=== PATIENT | female | born 1935 | race Caucasian/White ===

== ENCOUNTER 2020-04-23 15:12 | Outpatient (RCR) | payer MEDICAID ==
[~2020-04-23 15:12] MED LIST: ASPI-1238 PO; ASPI-999 PO; DILT-27 PO
== END 2020-07-22 ==
LOC: CARD 15:12
PROVIDERS: ATTEND Internal Medicine Interventional Cardiology
DX: I48.91 Unspecified atrial fibrillation (principal)

== ENCOUNTER → 2021-03-05 | Outpatient (CLI) | payer MEDICAID ==
--- NOTE | 2021-03-05 11:27 | Diagnostic Imaging Report ---
US ABDOMEN COMPLETE 19804 PROCEDURE: Ultrasound abdomen complete. TECHNIQUE: Multiple real-time grayscale images were obtained of the abdomen in various projections. INDICATION: Right upper quadrant pain. COMPARISON: None available. FINDINGS: The liver measures 14 cm. It has normal echogenicity and is without focal mass. The portal vein is patent with normal direction of flow. The gallbladder is distended without gallstones, wall thickening, or pericholecystic fluid. The common bile duct measures up to 0.4 cm in diameter. No intrahepatic biliary dilation. The visualized portions of the pancreas are normal. Portions of the head and tail are obscured by overlying bowel gas. The kidneys are normal in size. No hydronephrosis, shadowing calculi, or suspicious mass lesion. The spleen is normal in size measuring 7 cm. There is no focal splenic mass. Aorta is normal in caliber with distal tapering. This measures up to 2.2 cm proximally and has a moderate amount of atherosclerotic plaque present. IVC is patent. Small bilateral pleural effusions are present. IMPRESSION: 1. Normal gallbladder and bile ducts. 2. Atherosclerotic aorta. 3. Small bilateral pleural effusions. Dictated by: Dictated on workstation # [id number]
== END ==
LOC: RAD 09:30
PROVIDERS: ATTEND Nurse Practitioner Community Health
DX: I70.0 Atherosclerosis of aorta (principal); J90 Pleural effusion, not elsewhere classified
CPT/HCPCS: 76700

== ENCOUNTER 2021-07-27 14:52 | Inpatient (IN) | payer MEDICAID ==
[~2021-07-27] VITALS: Ht 154.9 cm; Wt 63.8 kg
--- NOTE | 2021-07-27 15:15 | ED General ---
General Stated Complaint: LEG PAIN Source of Information: Patient, EMS Exam Limitations: No Limitations History of Present Illness Date Seen by Provider: Jul 27, 2021 Time Seen by Provider: 14:53 Initial Comments 86-year-old female with past medical history of hypertension, severe tricuspid regurg, pAfib not anticoagulated per patient preference, and peripheral neuropathy coming in via EMS from her assisted living facility due to lower leg pain. She said her pain was throughout her entire lower legs, acute, throbbing, and severe. She felt like she was unable to get up to go to the bathroom because it hurts so bad so she called an ambulance. The pain has since let up. She has not taken anything for the pain. She says she is never quite felt anything like this. She does endorse peripheral neuropathy and does have chronic numbness in her feet, but this felt different to her. She denies any previous history of DVT or PE, hemoptysis, recent surgery, chest pain. She says she is having a mild cough intermittently recently but did not think anything of it. Said she had a COVID test this morning which she believes was negative. She has never had COVID and has not been vaccinated. Has not been febrile. Says she is allergic to contrast dye, but she is unable to tell me exactly what happens but does say it was severe. In regards to the patient's CODE STATUS, she says she would never want chest compressions because there is the possibility of it breaking her ribs, and therefore wants to be DNR. She did say if she had a respiratory illness that we thought we could reverse while being on the ventilator for a little bit she would be okay with that. Allergies and Home Medications Allergies Coded Allergies: Iodinated Contrast Media (Verified Allergy, Unknown, 04/16/20) Patient Home Medication List Home Medication List Reviewed: Yes Aspirin (Aspirin) 81 Mg Tab.chew, 81 MG PO DAILY@0900 Prescribed by: EDDA NORTON on 04/22/20954 Diltiazem HCl (Diltiazem 24Hr ER) 120 Mg Cap.er.24h, 120 MG PO DAILY Prescribed by: EDDA NORTON on 04/22/20954 Review of Systems Review of Systems Constitutional: No chills, No fever EENTM: No blurred vision Respiratory: cough, short of breath Cardiovascular: No chest pain Gastrointestinal: No abdominal pain, No diarrhea, No nausea, No vomiting Genitourinary: no symptoms reported Musculoskeletal: muscle pain Skin: no symptoms reported Psychiatric/Neurological: No Symptoms Reported Hematologic/Lymphatic: No Symptoms Reported Immunological/Allergic: no symptoms reported All Other Systems Reviewed Negative Unless Noted: Yes Past Oleimhx-Naqnpn-Wzjtsg Hx Patient Social History Tobacco Use?: No Past Medical History Surgeries: Yes Tonsillectomy Respiratory: No Atrial Fibrillation, Hypertension Neurological: No Genitourinary: Yes ("kidney problems", urinary incontinenece) Gastrointestinal: Yes ("parasites", loose bowels) Musculoskeletal: Yes Chronic Back Pain Endocrine: No HEENT: Yes (bilat cataract removal) Cataract Hearing Impairment: Denies Psychosocial: Yes Anxiety Integumentary: Yes ("cysts on back of head") Family Medical History Patient reports no known family medical history. Physical Exam Vital Signs Vital Signs - First Documented 07/27/21 14:52 Temp 36.0 Pulse 73 Resp 20 B/P (MAP) 193/83 (119) Pulse Ox 84 O2 Delivery Room Air O2 Flow Rate 2.00 Capillary Refill : Height, Weight, BMI Height: '" Weight: lbs. oz. kg; 19.88 BMI Method: General Appearance: No Apparent Distress, WD/WN Eyes: Bilateral Eye Normal Inspection, Bilateral Eye PERRL HEENT: PERRL/EOMI, Normal ENT Inspection, Pharynx Normal Neck: Full Range of Motion, Normal Inspection, Non Tender, Supple Respiratory: Chest Non Tender, No Accessory Muscle Use, No Respiratory Distress, Rales Cardiovascular: Regular Rate, Rhythm, Normal Peripheral Pulses, Other (trace lower extremity edema) Gastrointestinal: Normal Bowel Sounds, Non Tender, Soft; No Distended, No Guarding Back: Normal Inspection Extremity: Normal Capillary Refill, Calf Tenderness, Pedal Edema, Other (chronic venous stasis color changes to lower extremities, scaly/dry skin) Neurologic/Psychiatric: Alert, Oriented x3, No Motor/Sensory Deficits, Normal Mood/Affect Skin: Normal Color, Warm/Dry Lymphatic: No Adenopathy Progress/Results/Core Measures Suspected Sepsis SIRS Temperature: Pulse: Respiratory Rate: Laboratory Tests 07/27/21 15:15: White Blood Count 9.3 Blood Pressure / Mean: Laboratory Tests 07/27/21 15:15: Creatinine 0.99, INR Comment 1.1, Platelet Count 142, Total Bilirubin 1.3H Results/Orders Lab Results Laboratory Tests Test 07/27/21 15:15 Range/Units White Blood Count 9.3 4.3-11.0 10^3/uL Red Blood Count 4.09 3.80-5.11 10^6/uL Hemoglobin 13.2 11.5-16.0 g/dL Hematocrit 40 35-52 % Mean Corpuscular Volume 98 80-99 fL Mean Corpuscular Hemoglobin 32 25-34 pg Mean Corpuscular Hemoglobin Concent 33 32-36 g/dL Red Cell Distribution Width 14.0 10.0-14.5 % Platelet Count 142 130-400 10^3/uL Mean Platelet Volume 11.4 9.0-12.2 fL Immature Granulocyte % (Auto) 1 % Neutrophils (%) (Auto) 81 H 42-75 % Lymphocytes (%) (Auto) 9 L 12-44 % Monocytes (%) (Auto) 8 0-12 % Eosinophils (%) (Auto) 0 0-10 % Basophils (%) (Auto) 1 0-10 % Neutrophils # (Auto) 7.5 1.8-7.8 10^3/uL Lymphocytes # (Auto) 0.8 L 1.0-4.0 10^3/uL Monocytes # (Auto) 0.8 0.0-1.0 10^3/uL Eosinophils # (Auto) 0.0 0.0-0.3 10^3/uL Basophils # (Auto) 0.1 0.0-0.1 10^3/uL Immature Granulocyte # (Auto) 0.1 0.0-0.1 10^3/uL Prothrombin Time 14.2 12.2-14.7 SEC INR Comment 1.1 0.8-1.4 Activated Partial Thromboplast Time 33 24-35 SEC D-Dimer 5.13 H 0.00-0.49 UG/ML Sodium Level 135 135-145 MMOL/L Potassium Level 4.4 3.6-5.0 MMOL/L Chloride Level 102 98-107 MMOL/L Carbon Dioxide Level 19 L 21-32 MMOL/L Anion Gap 14 5-14 MMOL/L Blood Urea Nitrogen 35 H 7-18 MG/DL Creatinine 0.99 0.60-1.30 MG/DL Estimat Glomerular Filtration Rate 53 BUN/Creatinine Ratio 35 Glucose Level 125 H 70-105 MG/DL Calcium Level 9.1 8.5-10.1 MG/DL Corrected Calcium 9.0 8.5-10.1 MG/DL Magnesium Level 2.0 1.6-2.4 MG/DL Total Bilirubin 1.3 H 0.1-1.0 MG/DL Aspartate Amino Transf (AST/SGOT) 63 H 5-34 U/L Alanine Aminotransferase (ALT/SGPT) 85 H 0-55 U/L Alkaline Phosphatase 94 40-136 U/L Troponin I < 0.028 <0.028 NG/ML B-Type Natriuretic Peptide 515.2 H <100.0 PG/ML Total Protein 7.6 6.4-8.2 GM/DL Albumin 4.1 3.2-4.5 GM/DL My Orders Orders - RENAY SEXTON MD Ed Iv/Invasive Line Start (07/27/21 15:11) BNP (07/27/21 15:11) Cbc With Automated Diff (07/27/21 15:11) Comprehensive Metabolic Panel (07/27/21 15:11) Fibrin Degradation Products (07/27/21 15:11) Magnesium (07/27/21 15:11) Protime With Inr (07/27/21 15:11) Partial Thromboplastin Time (07/27/21 15:11) Troponin I (07/27/21 15:11) Ekg Tracing (07/27/21 15:11) O2 (07/27/21 15:11) Monitor-Rhythm Ecg Trace Only (07/27/21 15:11) Chest 1 View, Ap/Pa Only (07/27/21 15:11) Acetaminophen Tablet (Tylenol Tablet) (07/27/21 15:15) Ct Chest Wo (07/27/21 15:38) Furosemide Injection (Lasix Injection) (07/27/21 16:00) Medications Given in ED Current Medications Medications Dose Ordered Sig/Sindhu Route Start Time Stop Time Status Last Admin Dose Admin Furosemide 40 mg ONCE ONCE IVP 07/27/21 16:00 07/27/21 16:01 DC 07/27/21 16:04 40 MG Vital Signs/I&O 07/27/21 07/27/21 14:52 14:52 Temp 36.0 Pulse 73 Resp 20 B/P (MAP) 193/83 (119) Pulse Ox 84 O2 Delivery Room Air Nasal Cannula O2 Flow Rate 2.00 Capillary Refill : Progress Note : Progress Note 86-year-old female with above history coming in due to initially bilateral leg pain. On arrival her oxygen saturation was consistently at 84%. She denies any chronic lung disease that she knows of. She was placed on 2 L oxygen with good response. She does not have any asymmetric swelling of one lower extremity, and I would think would be very unlikely she would have bilateral DVTs that came on at the same time. Other than her chronic venous stasis changes, she also does no t have any other clinical signs of a DVT. She did feel short of breath this morning which she said was transient. She also had a transient cough which she says has not been consistent. She had a negative Covid test this morning at her facility. Differential includes pneumonia versus less likely pneumothorax versus volume overload versus pulmonary embolism versus some other etiology as a cause for her hypoxia. I favor volume overload given her clinical presentation. I reviewed her TTE from April 17, 2020 and her EF was 55 to 65%, she had severe tricuspid regurgitation, and moderate mitral valve regurgitation. She was admitted to the hospital at that time due to A. fib with RVR. Today she is in sinus rhythm. At that time she was refusing anticoagulation, and negative feeling today that she does not want to take many medications, but has been wanting to take her metoprolol. We contacted the assisted living facility where she is staying and they confirmed that her Covid test was negative, and a confirmed to her lower extremities chronically look the way they do today, and are unchanged. Chest x-ray concerning for pulmonary edema. She is Lasix evette was given IV Lasix 40 mg. Labs otherwise significant for negative troponin, elevated BNP, normal creatinine. I contacted Dr. De Dios given her acute hypoxic respiratory failure as well as what I am concerned is a CHF exacerbation and she recommends admission to the cardiac stepdown as an inpatient status for further evaluation and management. I then contacted Dr. Camargo the machine turner on-call and made him aware of the patient as well. ECG Initial ECG Impression Date: Jul 27, 2021 Initial ECG Impression Time: 15:01 Initial ECG Rate: 75 Initial ECG Rhythm: Normal Sinus Comment Narrow QRS, normal axis, no significant ST changes, there is baseline wander making it difficult to interpret, T wave flattening and inversions in leads II, III, V2, compared to her prior EKG she has now in sinus rhythm Diagnostic Imaging Diagonstic Imaging: Xray (chest), CT (chest without) Comments [facility], [place] NAME: ROSA MARIA OLIVO [facility] REC#: [id number] PT STATUS: REG ER : 1935 PHYSICIAN: RENAY SEXTON MD ADMIT DATE: 07/27/21/ER Draft Date of Exam:07/27/21 CHEST 1 VIEW, AP/PA ONLY EXAM: Chest 1 view, AP/PA only. INDICATION: Hypoxia. Shortness of breath. COMPARISON: 04/16/2020. FINDINGS: Low lung volumes. Increasing prominence of the pulmonary vascularity and interstitium suspicious for interstitial edema. Enlarging small right pleural effusion. Bibasilar atelectasis or infiltrate. No pneumothorax. No acute osseous finding. IMPRESSION: 1. Stable heart size with increasing prominence of the pulmonary vascularity and interstitium, suspicious for interstitial edema. 2. Enlarging small right pleural effusion. 3. Bibasilar atelectasis or infiltrate. Dictated on workstation # [id number] Dict: 07/27/21 1602 Trans: 07/27/21 1609 [facility] [id number] Interpreted by: HARLAN ADRIAN MD Electronically signed by: [facility] [place], [place] NAME: ROSA MARIA OLIVO [facility] REC#: [id number] PT STATUS: REG ER : 1935 PHYSICIAN: RENAY SEXTON MD ADMIT DATE: 07/27/21/ER Draft Date of Exam:07/27/21 CT CHEST WO PROCEDURE: CT chest without contrast. TECHNIQUE: Multiple contiguous axial images were obtained through the chest without the use of intravenous contrast. Auto Exposure Controls were utilized during the CT exam to meet ALARA standards for radiation dose reduction. INDICATION: Shortness of breath. Leg pain. COMPARISON: Chest radiograph 07/27/2021. FINDINGS: Moderate bilateral pleural effusions. There are a few patchy groundglass opacities in the left upper lobe. Airspace consolidation in the lower lobes may be related to compressive atelectasis of the lung. No pneumothorax. Cardiomegaly. No pericardial effusion. No lymphadenopathy. Age-indeterminate compression fractures of T9 and T10 resulting in up to 80% height loss without retropulsion. Partially visualized free fluid anterior to the liver. IMPRESSION: 1. Moderate bilateral pleural effusions. 2. There are a few patchy groundglass opacities in the left upper lobe which could be due to pneumonitis. Airspace consolidation in the lower lobes may be related to compressive atelectasis from the effusions alone. Pneumonitis is not excluded. 3. Age-indeterminate T9 and T10 compression fractures resulting in up to 80% height loss. This could be better evaluated with MRI, if clinically warranted. 4. Partially visualized free fluid in the abdomen anterior to the liver. Dictated on workstation # [id number] Dict: 07/27/21 1606 Trans: 07/27/21 1618 [facility] [id number] Interpreted by: HARLAN ADRIAN MD Electronically signed by: Departure Impression Primary Impression: Respiratory failure Qualified Codes: J96.01 - Acute respiratory failure with hypoxia Additional Impression: CHF exacerbation Qualified Codes: I50.9 - Heart failure, unspecified Disposition: 09 ADMITTED INPATIENT Condition: Stable Admissions Decision to Admit Reason: Admit from ER (General) Decision to Admit/Date: Jul 27, 2021 Time/Decision to Admit Time: 15:55 Departure-Patient Inst. Referrals: [facility] (PCP) Primary Care Physician SNOW RODRIGUEZ (Family) Primary Care Physician RENAY SEXTON MD Jul 27, 2021 15:14
[2021-07-27 15:24] LABS: BASOPHILS # (AUTO) 0.1 10^3/uL (0.0-0.1); BASOPHILS % (AUTO) 1 % (0-10); EOSINOPHILS % (AUTO) 0 % (0-10); HEMATOCRIT 40 % (35-52); HEMOGLOBIN 13.2 g/dL (11.5-16.0); LYMPHOCYTES # (AUTO) 0.8 10^3/uL (1.0-4.0); LYMPHOCYTES % (AUTO) 9 % (12-44); MEAN CORPUSCULAR HEMOGLOBIN 32 pg (25-34); MEAN CORPUSCULAR HGB CONC 33 g/dL (32-36); MEAN CORPUSCULAR VOLUME 98 fL (80-99); MEAN PLATELET VOLUME 11.4 fL (9.0-12.2); MONOCYTES # (AUTO) 0.8 10^3/uL (0.0-1.0); MONOCYTES % (AUTO) 8 % (0-12); NEUTROPHILS # (AUTO) 7.5 10^3/uL (1.8-7.8); NEUTROPHILS % (AUTO) 81 % (42-75); PLATELET COUNT 142 10^3/uL (130-400); WHITE BLOOD COUNT 9.3 10^3/uL (4.3-11.0)
[2021-07-27] MEDS: ACETAMINOPHEN 500 MG TAB (TYLENOL) PO ONE ×2 (15:28→15:33)
[2021-07-27 15:31] LABS: ALBUMIN 4.1 GM/DL (3.2-4.5); CHLORIDE 102 MMOL/L (98-107); POTASSIUM 4.4 MMOL/L (3.6-5.0); SODIUM 135 MMOL/L (135-145)
[2021-07-27 15:32] LABS: CALCIUM 9.1 MG/DL (8.5-10.1)
[2021-07-27 15:34] LABS: GLUCOSE 125 MG/DL (70-105); TOTAL PROTEIN 7.6 GM/DL (6.4-8.2)
[2021-07-27 15:35] LABS: CARBON DIOXIDE 19 MMOL/L (21-32)
[2021-07-27 15:36] LABS: BILIRUBIN,TOTAL 1.3 MG/DL (0.1-1.0)
[2021-07-27 15:37] LABS: ALKALINE PHOSPHATASE 94 U/L (40-136); CREATININE SERUM 0.99 MG/DL (0.60-1.30); GFR ESTIMATED 53
[2021-07-27 15:38] LABS: BUN/CREATININE RATIO 35
[2021-07-27 15:40] LABS: ALANINE AMINOTRANSFERASE 85 U/L (0-55)
[2021-07-27 15:43] LABS: FIBRIN DEGRADATION PRODUCTS 5.13 UG/ML (0.00-0.49); INR 1.1 (0.8-1.4); PROTHROMBIN TIME PATIENT 14.2 SEC (12.2-14.7)
[2021-07-27] MEDS ORDERED: FUROSEMIDE 40 MG/4 ML INJ (LASIX) IVP ONE (16:00)
--- NOTE | 2021-07-27 16:10 | Diagnostic Imaging Report ---
EXAM: Chest 1 view, AP/PA only. INDICATION: Hypoxia. Shortness of breath. COMPARISON: 04/16/2020. FINDINGS: Low lung volumes. Increasing prominence of the pulmonary vascularity and interstitium suspicious for interstitial edema. Enlarging small right pleural effusion. Bibasilar atelectasis or infiltrate. No pneumothorax. No acute osseous finding. IMPRESSION: 1. Stable heart size with increasing prominence of the pulmonary vascularity and interstitium, suspicious for interstitial edema. 2. Enlarging small right pleural effusion. 3. Bibasilar atelectasis or infiltrate. Dictated by: Dictated on workstation # [id number]
--- NOTE | 2021-07-27 16:20 | Diagnostic Imaging Report ---
PROCEDURE: CT chest without contrast. TECHNIQUE: Multiple contiguous axial images were obtained through the chest without the use of intravenous contrast. Auto Exposure Controls were utilized during the CT exam to meet ALARA standards for radiation dose reduction. INDICATION: Shortness of breath. Leg pain. COMPARISON: Chest radiograph 07/27/2021. FINDINGS: Moderate bilateral pleural effusions. There are a few patchy groundglass opacities in the left upper lobe. Airspace consolidation in the lower lobes may be related to compressive atelectasis of the lung. No pneumothorax. Cardiomegaly. No pericardial effusion. No lymphadenopathy. Age-indeterminate compression fractures of T9 and T10 resulting in up to 80% height loss without retropulsion. Partially visualized free fluid anterior to the liver. IMPRESSION: 1. Moderate bilateral pleural effusions. 2. There are a few patchy groundglass opacities in the left upper lobe which could be due to pneumonitis. Airspace consolidation in the lower lobes may be related to compressive atelectasis from the effusions alone. Pneumonitis is not excluded. 3. Age-indeterminate T9 and T10 compression fractures resulting in up to 80% height loss. This could be better evaluated with MRI, if clinically warranted. 4. Partially visualized free fluid in the abdomen anterior to the liver. Dictated by: Dictated on workstation # [id number]
[2021-07-27 16:38] LABS: BILIRUBIN,URINE NEGATIVE (NEGATIVE); CLARITY,URINE CLEAR; COLOR,URINE YELLOW; GLUCOSE, URINE (UA) NEGATIVE (NEGATIVE); KETONES,URINE NEGATIVE (NEGATIVE); LEUKOCYTE ESTERASE ,URINE NEGATIVE (NEGATIVE); NITRITE,URINE NEGATIVE (NEGATIVE); PH,URINE 5.5 (5-9); PROTEIN,URINE NEGATIVE (NEGATIVE)
[2021-07-27 16:51] LABS: BACTERIA,URINE NEGATIVE /HPF; RBC,URINE RARE /HPF
[2021-07-27 17:00] VITALS: BP 177/88
[2021-07-27] MEDS ORDERED: ALPRAZolam 0.25 MG (XANAX) TAB PO PRN (17:15)
[2021-07-27] MEDS ORDERED: MELATONIN 3 MG TABLET PO PRN (17:15)
[2021-07-27] MEDS ORDERED: CALCIUM CARBONATE 500 MG (TUMS) TAB.CHEW PO PRN (17:15)
[2021-07-27] MEDS ORDERED: ONDANSETRON 4 MG (ZOFRAN) ORAL DISSOLVE TAB PO PRN (17:15)
[2021-07-27] MEDS ORDERED: ACETAMINOPHEN 500 MG TAB (TYLENOL) PO PRN (17:15)
[2021-07-27] MEDS ORDERED: DOCUSATE SODIUM 100 MG (COLACE) CAP PO PRN (17:15)
[2021-07-27] MEDS ORDERED: LOPERAMIDE 2 MG (IMODIUM) TABLET PO PRN (17:15)
[2021-07-27] MEDS ORDERED: diphenhydrAMINE 25 MG TAB (BENADRYL) PO PRN (17:15)
[2021-07-27] MEDS ORDERED: HYDROcodone/APAP 5 MG/325 MG (LORTAB) TAB PO PRN (17:15)
[2021-07-27] MEDS ORDERED: morphine INJ 10 MG/ML 1ML (SYR OR VIAL) IVP PRN (17:15)
[2021-07-27 17:54] VITALS: BP 193/83
[2021-07-27] MEDS ORDERED: RT-ALBUTEROL/IPRATROPIUM 3 ML (DUONEB) VIAL INH PRN (18:00)
[2021-07-27 18:15] VITALS: BP 177/79
[2021-07-27] MEDS ORDERED: cloNIDine 0.1 MG (CATAPRES) TAB ONE (19:13)
[2021-07-27] MEDS ORDERED: cloNIDine 0.1 MG (CATAPRES) TAB PO PRN (19:15)
--- NOTE | 2021-07-27 19:19 | History & Physical-Hospitalist ---
History of Present Illness HPI/Chief Complaint Chief complaint: Shortness of breath History of present illness: This is a 86-year-old white female clinic patient of [facility] who lives in facility who has a past medical history of atrial fibrillation but noncompliant with medication. She presented with hypoxia and shortness of breath and all Covid testing been negative. Patient was found to have congestive heart failure in need of IV Lasix if she allows. She is a DO NOT RESUSCITATE. Source: patient Exam Limitations: clinical condition Date Seen 07/27/21 Time Seen by a Provider: 16:00 Attending Physician Pretty De Dios DO [facility] Referring Physician Date of Admission Jul 27, 2021 at 15:55 Home Medications & Allergies Home Medications Reviewed patient Home Medication Reconciliation performed by pharmacy medication reconciliations registered veterinary technician and/or nursing. Patients Allergies have been reviewed. Allergies Allergies Coded Allergies Iodinated Contrast Media (Verified Allergy, Unknown, 04/16/20) Past Auntsrr-Necxxx-Qeorfu Hx Patient Social History Marrital Status: single Employed/Student: retired Tobacco Use?: No Smoking Status: Never a Smoker Smokeless Tobacco Frequency: Never a User Use of E-Cig and/or Vaping dev: No Substance use?: No Alcohol Use?: No Pt feels they are or have been: No Immunizations Up To Date Hepatitis A: No Current Status status: No Advance Directives: No Communicates: Verbally Primary Language: Djiboutian Preferred Spoken Language: Djiboutian Is interpretation needed?: No Sensory deficits: Vision impairment Implanted or Applied Medical D: None Past Medical History Surgeries: Tonsillectomy Atrial Fibrillation, Chronic Edema/Swelling, Hypertension Chronic Back Pain Cataract Hearing Impairment: Denies Anxiety Family Medical History Patient reports no known family medical history. Review of Systems ROS-Unable to Obtain: Refuses to answer most questions Constitutional: see HPI Physical Exam Physical Exam Vital Signs Vital Signs - First Documented 07/27/21 14:52 Temp 36.0 Pulse 73 Resp 20 B/P (MAP) 193/83 (119) Pulse Ox 84 O2 Delivery Room Air O2 Flow Rate 2.00 Capillary Refill : Less Than 3 Seconds Height, Weight, BMI Height: '" Weight: lbs. oz. kg; 26.13 BMI Method: General Appearance: Anxious, Chronically ill, Mild Distress Eyes: Right Eye Normal Inspection, Right Eye PERRL HEENT: PERRL/EOMI, Normal ENT Inspection, Pharynx Normal, Moist Mucous Membranes Neck: Full Range of Motion, Normal Inspection, Non Tender Respiratory: Chest Non Tender, Lungs Clear, No Accessory Muscle Use, No Respiratory Distress, Decreased Breath Sounds Cardiovascular: No Edema, No Gallop, No JVD, No Murmur, Normal Peripheral Pulses, Irregularly Irregular, Tachycardia Gastrointestinal: Normal Bowel Sounds, No Organomegaly, No Pulsatile Mass, Non Tender, Soft Back: Normal Inspection, No CVA Tenderness, No Vertebral Tenderness Extremity: Normal Capillary Refill, Normal Inspection, Normal Range of Motion, Non Tender, No Calf Tenderness, No Pedal Edema Neurologic/Psychiatric: Alert, Oriented x3, No Motor/Sensory Deficits, Normal Mood/Affect Skin: Normal Color, Warm/Dry Lymphatic: No Adenopathy Results Results/Procedures Labs Laboratory Tests 07/27/21 15:15 07/28/21 04:40 Patient resulted labs reviewed. Assessment/Plan Admission Diagnosis Assessment: Acute exacerbation congestive heart failure Atrial fibrillation Plan: IV Lasix Cardiology consult DO NOT RESUSCITATE Cardiac stepdown Admission Status: Inpatient Order (span 2 midnights) Reason for Inpatient Admission: CHF PRETTY DE DIOS DO Jul 27, 2021 19:19
[2021-07-27 20:00] VITALS: BP 168/71
[2021-07-27] MEDS: APIXABAN 5 MG (ELIQUIS) TABLET PO SCH (21:00)
[2021-07-27] MEDS: SENNA W/DOCUSATE (SENOKOT S) TABLET PO SCH (21:00)
[2021-07-27] MEDS: polyethylene glycoL POWDER 17 GM (MIRALAX) PACK PO SCH (21:00)
[2021-07-28] VITALS (7 sets, daily range): BP systolic 104–149; BP diastolic 50–77
[2021-07-28 05:03] LABS: BASOPHILS % (AUTO) 1 % (0-10); EOSINOPHILS % (AUTO) 0 % (0-10); HEMATOCRIT 39 % (35-52); LYMPHOCYTES % (AUTO) 13 % (12-44); MEAN CORPUSCULAR HEMOGLOBIN 32 pg (25-34); MEAN CORPUSCULAR HGB CONC 33 g/dL (32-36); MEAN CORPUSCULAR VOLUME 97 fL (80-99); MEAN PLATELET VOLUME 11.7 fL (9.0-12.2); MONOCYTES # (AUTO) 0.8 10^3/uL (0.0-1.0); MONOCYTES % (AUTO) 11 % (0-12); NEUTROPHILS # (AUTO) 5.8 10^3/uL (1.8-7.8); NEUTROPHILS % (AUTO) 75 % (42-75); PLATELET COUNT 147 10^3/uL (130-400); WHITE BLOOD COUNT 7.7 10^3/uL (4.3-11.0)
[2021-07-28 05:28] LABS: ALBUMIN 3.6 GM/DL (3.2-4.5); POTASSIUM 3.5 MMOL/L (3.6-5.0)
[2021-07-28 05:29] LABS: CALCIUM 8.8 MG/DL (8.5-10.1)
[2021-07-28 05:30] LABS: TOTAL PROTEIN 6.2 GM/DL (6.4-8.2)
[2021-07-28 05:32] LABS: BILIRUBIN,TOTAL 1.6 MG/DL (0.1-1.0)
[2021-07-28 05:34] LABS: CREATININE SERUM 0.84 MG/DL (0.60-1.30)
[2021-07-28] MEDS: FUROSEMIDE 40 MG/4 ML INJ (LASIX) IVP SCH ×2 (05:38→18:01)
[2021-07-28] MEDS: APIXABAN 5 MG (ELIQUIS) TABLET PO SCH ×2 (07:55→21:15)
[2021-07-28] MEDS: polyethylene glycoL POWDER 17 GM (MIRALAX) PACK PO SCH ×2 (07:55→21:15)
[2021-07-28] MEDS: SENNA W/DOCUSATE (SENOKOT S) TABLET PO SCH ×2 (07:56→21:15)
--- NOTE | 2021-07-28 10:41 | Progress Note - Hospitalist ---
Subjective HPI/CC On Admission Date Seen by Provider: Jul 28, 2021 Time Seen by Provider: 10:30 Chief complaint: Shortness of breath History of present illness: This is a 86-year-old white female clinic patient of [facility] who lives in facility who has a past medical history of atrial fibrillation but noncompliant with medication. She presented with hypoxia and shortness of breath and all Covid testing been negative. Patient was found to have congestive heart failure in need of IV Lasix if she allows. She is a DO NOT RESUSCITATE. 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 and cannot take most medications Refusing Cardizekayla Asked for the aspirin to be restarted Lasix initiated Feels like she is actually dehydrated and needs IV fluids I told her that would not be a good plan of care Review of Systems General: Fatigue Objective Exam Vital Signs Vital Signs Date Time Temp Pulse Resp B/P (MAP) Pulse Ox O2 Delivery O2 Flow Rate FiO2 07/28/21 15:31 37.0 76 20 104/61 (75) 95 Nasal Cannula 1.00 Capillary Refill : Less Than 3 Seconds General Appearance: No Apparent Distress, WD/WN, Chronically ill, Thin Respiratory: No Accessory Muscle Use, No Respiratory Distress, Decreased Breath Sounds Cardiovascular: Irregularly Irregular, Tachycardia Neurologic/Psychiatric: Alert, Oriented x3, No Motor/Sensory Deficits, Normal Mood/Affect Results/Procedures Lab Laboratory Tests 07/28/21 04:40 Patient resulted labs reviewed. Assessment/Plan Assessment and Plan Assess & Plan/Chief Complaint Assessment: Acute exacerbation congestive heart failure Atrial fibrillation Plan: IV Lasix Cardiology consult DO NOT RESUSCITATE Cardiac stepdown 07/28/2021: Transfer to fourth floor Lasix Monitor JOCELYN Morgan DO Jul 28, 2021 10:41
[2021-07-28] MEDS ORDERED: KCL 10 MEQ TAB (MICRO K) PO NR (11:00)
--- NOTE | 2021-07-28 16:03 | Consultation-Cardiology ---
HPI-Cardiology Cardiology Consultation: Date of Consultation 07/28/2021 Date of Admission 07/27/2021 Attending Physician Pretty De Dios DO Admitting Physician [facility] Consulting Physician HAI HAYWOOD JR, MD HPI: Time Seen by a Provider: 15:57 Chief Complaint: Reason for consultation: Heart failure. I had the pleasure of seeing Teddy on the medical/surgical unit at [facility] in [place], [place] this afternoon. She has a history of paroxysmal atrial fibrillation, hypertension and valvular heart disease. She currently resides in a care home facility. Yesterday she started developing bilateral leg cramps, worse on the left. She called for help. She could not get up out of bed due to severe pain in her legs. She tried to have staff help her into the bathroom but her leg pain was too severe and she has to be brought to the hospital for further evaluation. While she was being evaluated in the emergency room, she was felt to have acute heart failure and was admitted for further evaluation. Today her leg cramps have improved but not completely resolved. She does have some mild shortness of breath at rest. Yesterday when she was having all the pain in her legs she felt dizzy but denies any syncope. From time to time she feels like she has palpitations from the atrial fibrillation. She denies chest discomfort, paroxysmal nocturnal dyspnea, orthopnea, or lower extremity edema. Because of the heart failure, a cardiology consultation was requested. Certain portions of this document may have been dictated utilizing voice recognition technology. Inherent to this technology, typographical and grammatical errors may exist. As much as I am diligent to identify and correct these mistakes, some errors may remain in the document. Review of Systems-Cardiology Review of Systems Other comments Review of 10 organ systems is as per the history of present illness, otherwise negative. All Other Systems Reviewed Negative Unless Noted: Yes FLN-[id number]-Dzrzcg Hx Patient Social History Marrital Status: single Employed/Student: retired Smoking Status: Never a Smoker 2nd Hand Smoke Exposure: No Have you traveled recently?: No Alcohol Use?: No Pt feels they are or have been: No Past Medical History PMH As described under Assessment. Family Medical History Family Medical History: The patient does not know of any family history of premature coronary artery disease in first-degree relatives. Family History: Patient reports no known family medical history. Allergies and Home Medications Allergies Coded Allergies: Iodinated Contrast Media (Verified Allergy, Unknown, 04/16/20) Patient Home Medication List Home Medication List Reviewed: Yes Aspirin (Aspirin) 81 Mg Tab.chew, 81 MG PO DAILY@0900 Prescribed by: EDDA NORTON on 04/22/20 0955 Diltiazem HCl (Diltiazem 24Hr ER) 120 Mg Cap.er.24h, 120 MG PO DAILY Prescribed by: EDDA NORTON on 04/22/20 0955 Exam Vital Signs Vital Signs Date Time Temp Pulse Resp B/P (MAP) Pulse Ox O2 Delivery O2 Flow Rate FiO2 07/28/21 15:31 37.0 76 20 104/61 (75) 95 Nasal Cannula 1.00 Physical Exam General: Alert. No acute distress. Well nourished and appears stated age. Eye: Extraocular movements are intact. Conjunctivae are clear. There are no xanthelasma. HENT: Normocephalic. Atraumatic. Carotid pulsations 2/2 without bruits. Neck: Jugular venous pressure does not appear elevated. No thyromegaly appreciated. Respiratory: Lungs are clear to auscultation but decreased at the bases bilaterally. Respirations are non-labored. Breath sounds are equal. Symmetrical chest wall expansion. Cardiovascular: Normal rate. Irregular rhythm. 2/6 systolic ejection murmur. No gallop. Point of maximal impulse is not appear displaced. Good pulses equal in all extremities. 1+ bilateral pretibial edema with possible scattered petechiae on the legs below the knees versus chronic venous stasis changes. Gastrointestinal: Soft. Normal bowel sounds. Skin: Skin turgor is normal. There is no pallor. Musculoskeletal: No kyphosis or scoliosis appreciated. Neurologic: Alert and oriented to person, place, time. Cranial nerves 3-12 appe ar grossly intact. The patient has good motor tone strength in the upper and lower extremities bilaterally. Psychiatric: Cooperative. Appropriate mood & affect. Labs Laboratory Tests Test 07/27/21 16:32 07/28/21 04:40 Range/Units Urine Color YELLOW Urine Clarity CLEAR Urine pH 5.5 5-9 Urine Specific [place] 1.015 L 1.016-1.022 Urine Protein NEGATIVE NEGATIVE Urine Glucose (UA) NEGATIVE NEGATIVE Urine Ketones NEGATIVE NEGATIVE Urine Nitrite NEGATIVE NEGATIVE Urine Bilirubin NEGATIVE NEGATIVE Urine Urobilinogen 0.2 < = 1.0 MG/DL Urine Leukocyte Esterase NEGATIVE NEGATIVE Urine RBC (Auto) 2+ H NEGATIVE Urine RBC RARE /HPF Urine WBC NONE /HPF Urine Squamous Epithelial Cells NONE /HPF Urine Crystals NONE /LPF Urine Bacteria NEGATIVE /HPF Urine Casts NONE /LPF Urine Mucus NEGATIVE /LPF Urine Culture Indicated NO White Blood Count 7.7 4.3-11.0 10^3/uL Red Blood Count 4.07 3.80-5.11 10^6/uL Hemoglobin 13.0 11.5-16.0 g/dL Hematocrit 39 35-52 % Mean Corpuscular Volume 97 80-99 fL Mean Corpuscular Hemoglobin 32 25-34 pg Mean Corpuscular Hemoglobin Concent 33 32-36 g/dL Red Cell Distribution Width 13.9 10.0-14.5 % Platelet Count 147 130-400 10^3/uL Mean Platelet Volume 11.7 9.0-12.2 fL Immature Granulocyte % (Auto) 0 % Neutrophils (%) (Auto) 75 42-75 % Lymphocytes (%) (Auto) 13 12-44 % Monocytes (%) (Auto) 11 0-12 % Eosinophils (%) (Auto) 0 0-10 % Basophils (%) (Auto) 1 0-10 % Neutrophils # (Auto) 5.8 1.8-7.8 10^3/uL Lymphocytes # (Auto) 1.0 1.0-4.0 10^3/uL Monocytes # (Auto) 0.8 0.0-1.0 10^3/uL Eosinophils # (Auto) 0.0 0.0-0.3 10^3/uL Basophils # (Auto) 0.0 0.0-0.1 10^3/uL Immature Granulocyte # (Auto) 0.0 0.0-0.1 10^3/uL Sodium Level 139 135-145 MMOL/L Potassium Level 3.5 L 3.6-5.0 MMOL/L Chloride Level 102 98-107 MMOL/L Carbon Dioxide Level 22 21-32 MMOL/L Anion Gap 15 H 5-14 MMOL/L Blood Urea Nitrogen 28 H 7-18 MG/DL Creatinine 0.84 0.60-1.30 MG/DL Estimat Glomerular Filtration Rate 64 BUN/Creatinine Ratio 33 Glucose Level 108 H 70-105 MG/DL Calcium Level 8.8 8.5-10.1 MG/DL Corrected Calcium 9.1 8.5-10.1 MG/DL Total Bilirubin 1.6 H 0.1-1.0 MG/DL Aspartate Amino Transf (AST/SGOT) 41 H 5-34 U/L Alanine Aminotransferase (ALT/SGPT) 62 H 0-55 U/L Alkaline Phosphatase 92 40-136 U/L Total Protein 6.2 L 6.4-8.2 GM/DL Albumin 3.6 3.2-4.5 GM/DL ECG Impression ECG Comment Sinus rhythm with poor R wave progression and nonspecific ST-T wave changes. Diagnosis/Problems Diagnosis/Problems (1) Acute on chronic heart failure with preserved ejection fraction (HFpEF) Assessment & Plan: She had evidence of pulmonary congestion on her chest x-ray and changes on her CT of the chest that could be consistent with pulmonary edema. She had an echocardiogram in 2019 that showed a normal ejection fraction. She does have valvular heart disease. Her breathing seems to be improving with intravenous diuretic. She is concerned that this could cause worsening leg pain or affect her kidneys. She was asking me if she could drink some extra fluid to counteract the effect of the diuretic. I tried to explain to her that we are attempting to remove fluid from her lungs as opposed to add fluid back. I will obtain a follow-up echocardiogram in the morning to assess her ejection fraction. (2) Paroxysmal atrial fibrillation Assessment & Plan: She was in sinus rhythm on admission. She has refused oral anticoagulation in the past. She has been taking a low-dose of beta-neftali for rate control in the event she has recurrent atrial fibrillation. I explained to her that aspirin will not reduce her risk of stroke from atrial fibrillation and would just put her at increased risk of gastritis. (3) Tricuspid regurgitation Assessment & Plan: She had severe tricuspid regurgitation on her previous echocardiogram from 2019. This could be causing some peripheral edema. I will obtain a follow-up echocardiogram tomorrow. (4) Mitral regurgitation Assessment & Plan: She also had mild to moderate mitral regurgitation on the previous echocardiogram noted above. We will reassess this on her echocardiogram tomorrow. HAI HAYWOOD JR, MD Jul 28, 2021 16:03
[2021-07-28] MEDS ORDERED: KCL 10 MEQ TAB (MICRO K) PO SCH (18:00)
[2021-07-29 04:15] VITALS: BP 147/68
[2021-07-29 06:01] LABS: BASOPHILS # (AUTO) 0.1 10^3/uL (0.0-0.1); BASOPHILS % (AUTO) 1 % (0-10); EOSINOPHILS # (AUTO) 0.1 10^3/uL (0.0-0.3); EOSINOPHILS % (AUTO) 2 % (0-10); HEMATOCRIT 43 % (35-52); HEMOGLOBIN 13.9 g/dL (11.5-16.0); LYMPHOCYTES # (AUTO) 1.1 10^3/uL (1.0-4.0); LYMPHOCYTES % (AUTO) 13 % (12-44); MEAN CORPUSCULAR HEMOGLOBIN 32 pg (25-34); MEAN CORPUSCULAR HGB CONC 33 g/dL (32-36); MEAN CORPUSCULAR VOLUME 97 fL (80-99); MEAN PLATELET VOLUME 11.9 fL (9.0-12.2); MONOCYTES # (AUTO) 1.2 10^3/uL (0.0-1.0); MONOCYTES % (AUTO) 14 % (0-12); NEUTROPHILS % (AUTO) 71 % (42-75); PLATELET COUNT 150 10^3/uL (130-400); WHITE BLOOD COUNT 8.6 10^3/uL (4.3-11.0)
[2021-07-29 06:22] LABS: ALBUMIN 3.5 GM/DL (3.2-4.5); BILIRUBIN,TOTAL 1.4 MG/DL (0.1-1.0); CALCIUM 8.9 MG/DL (8.5-10.1); CREATININE SERUM 1.33 MG/DL (0.60-1.30); POTASSIUM 3.2 MMOL/L (3.6-5.0); TOTAL PROTEIN 6.4 GM/DL (6.4-8.2)
[2021-07-29] MEDS: FUROSEMIDE 40 MG/4 ML INJ (LASIX) IVP SCH (06:24)
[2021-07-29 08:00] VITALS: BP 92/52
--- NOTE | 2021-07-29 08:18 | Diagnostic Imaging Report ---
INDICATION: CHF exacerbation and shortness of air. TIME OF EXAM: 8:02 AM Correlation is made with prior chest from 04/16/2020. The heart size is stable. There are small bilateral pleural effusions, similar on the right and increased on the left when compared with study from 04/16/2020. There are some mild bibasilar infiltrates or atelectasis. Mid and upper lung goyal are clear. There is no pneumothorax. IMPRESSION: Bibasilar infiltrates or atelectasis and small bilateral pleural effusions. Dictated by: Dictated on workstation # [id number]
[2021-07-29] MEDS: polyethylene glycoL POWDER 17 GM (MIRALAX) PACK PO SCH ×2 (08:43→19:45)
[2021-07-29] MEDS: SENNA W/DOCUSATE (SENOKOT S) TABLET PO SCH ×2 (08:43→19:45)
[2021-07-29] MEDS: APIXABAN 5 MG (ELIQUIS) TABLET PO SCH ×2 (08:43→19:45)
[2021-07-29] MEDS: KCL 10 MEQ TAB (MICRO K) PO SCH ×3 (08:47→19:45)
[2021-07-29] MEDS: ASPIRIN E.C. 81 MG (ECOTRIN) TAB PO SCH (08:47)
[2021-07-29] MEDS ORDERED: MTP25TSR PO (08:48)
[2021-07-29] MEDS ORDERED: CNC1KV INJ (08:48)
--- NOTE | 2021-07-29 10:13 | Physical Therapy Evaluation ---
PT Evaluation-General Medical Diagnosis Admission Date Jul 27, 2021 at 15:55 Medical Diagnosis: CHF exacerbation/hypoxia Onset Date: Jul 27, 2021 Therapy Diagnosis Therapy Diagnosis: debility/weakness Precautions Precautions/Isolations: Standard Precautions Referral Physician: Mary Jo Reason for Referral: Evaluation/Treatment Medical History Pertinent Medical History: Atrial Fib, HTN, Neuropathy Current History EMS secondary to bilateral LE pain Reviewed History: Yes Social History Home: Assisted Living Prior Prior Level of Function SCALE: Activities may be completed with or without assistive devices. 2-Sultavmyhi-ebvudwm completes the activity by him/herself with no assistance from a helper. 5-Set-up or Clean-up Assistance-helper sets up or cleans up; patient completes activity. [place] assists only prior to or following the activity. 4-Supervision or Touching Assistance-helper provides verbal cues and/or touching/steadying and/or contact guard assistance as patient completes activity. Assistance may be provided throughout the activity or intermittently. 3-Partial/Moderate Assistance-helper does LESS THAN HALF the effort. [place] lifts, holds or supports trunk or limbs, but provides less than half the effort. 2-Substantial/Maximal Assistance-helper does MORE THAN HALF the effort. [place] lifts or holds trunk or limbs and provides more than half the effort. 8-Jqbftqmbf-rysqcr does ALL the effort. Patient does none of the effort to complete the activity. Or, the assistance of 2 or more helpers is required for the patient to complete the activity. If activity was not attempted, code reason: 7-Patient Refused. 9-Not Applicable-not attempted and the patient did not perform the activity before the current illness, exacerbation or injury. 10-Not Attempted due to Environmental Limitations-(lack of equipment, weather restraints, etc.). 88-Not Attempted due to Medical Conditions or Safety Concerns. Bed Mobility: 6 Transfers (B,C,W/C): 6 Gait: 6 Stairs: 9 Indoor Mobility (Ambulation): Independent Stairs: Not Applicalbe Prior Devices Use: Walker PT Evaluation-Current Subjective Patient very apprehensive to participate with PT due to fear of bilateral LE pain returning. Patient reports that if the pain returns its "not worth living". Patient currently denies bilateral LE pain. Pain Numeric Pain Scale: 0-No Pain Location: No Pain Reported Objective Patient Orientation: Normal For Age Attachments: Oxygen ROM/Strength ROM Lower Extremities bilateral LE WFL Strength Lower Extremities 3/5 grossly bilateral LE Integumentary/Posture Integumentary refer to nursing notes Bladder Incontinence: Yes Posture severe kyphosis Neuromuscular (Tone, Coordination, Reflexes) grossly intact Sensory Vision: Functional Hearing: Functional Transfers Lying to Sitting/Side of Bed(Q: 3 Sit to Stand (QC): 3 Chair/Iqz-ux-Puwvm Xfer(QC): 3 Gait Does the Patient Walk?: Yes Mode of Locomotion: Walk Anticipated Mode of Locomotion: Walk Walk 10 feet (QC): 3 Walk 50 ft with 2 Turns(QC): 88 Gait Assistive Device: FWW Comments/Gait Description slow, steady gait Balance Sitting Static: Normal Sitting Dynamic: Normal Standing Static: Fair Standing Dynamic: Fair Assessment/Needs 86 y.o. female,will benefit from skilled PT to address functional strength and mobility to improve current LOF to safely return to [place] or detention facility at maximum LOF. Rehab Potential: Fair PT Recovery Coordinator Goals Skilled Nursing Goals PT Skilled Nursing Goals Time Frame: Aug 10, 2021 Roll Left & Right (QC): 5 Sit to Lying (QC): 5 Lying-Sitting on Side/Bed(QC): 5 Sit to Stand (QC): 5 Chair/Rtw-mu-Wlurc Xfer(QC): 5 Toilet Transfer (QC): 5 Walk 10 feet (QC): 4 Walk 50ft with 2 Turns (QC): 4 Walk 150 ft (QC): 4 PT Plan Problem List Problem List: Activity Tolerance, Functional Strength, Safety, Balance, Gait, Transfer, Bed Mobility Treatment/Plan Treatment Plan: Continue Plan of Care Treatment Plan: Bed Mobility, Education, Functional Activity Kale, Functional Strength, Gait, Safety, Therapeutic Exercise, Transfers Treatment Duration: Aug 10, 2021 Frequency: 6 times per week Estimated Hrs Per Day: .25 hour per day Patient and/or Family Agrees t: Yes Time/GCodes Time In: 857 Time Out: 913 Total Billed Treatment Time: 16 Total Billed Treatment 1 visit EVModC 16 min YENNIFER SHEA PT Jul 29, 2021 10:13
[2021-07-29 11:32] VITALS: BP 146/66
--- OUTSIDE RECORDS SUMMARY | 2021-07-29 11:35 | XMS REPORT | Clinical Summary ---
Author Author [facility] Organization [facility] Address Unknown Phone Unavailable Care Team Providers Care Guest Relations Associate Name Role Phone SamuelLexie cuellar [employer]CHO[employer] BUSINESS ADMINISTRATOR PCP Source Comments Some departments are not documenting in the electronic medical record. If you d o not see the information that you expected, contact Release of Information in [facility] [employer] Information Management department at [phone] for further assistan ce in locating additional records.[facility] Allergies Comments Active Allergy Reactions Severity Noted Date Iodinated Contrast Media UNKNOWN Low 03/19 Iodine UNKNOWN Low 03/19/2021 Medications End Date Status Medication Sig Dispensed Refills Start Date Active cyanocobalamin (vit B-12) 0 (RUBRAMIN PC) 1,000 1 mcg/mL injection Active aspirin 81 mg chewable Chew 81 mg by 0 tablet mouth daily. Take with food. Active Problems Not on file Encounters Care Team Description Date Type Specialty Svitlana Wagner MD General Question 05/27/2021 Telephone Ophthalmology from Last 3 Months Surgical History Surgery Date Site/Laterality Comments HX CATARACT REMOVAL Medical History Medical History Date Comments Atrial fibrillation with RVR (HCC) Primary hypertension Moderate mitral regurgitation Severe tricuspid regurgitation Family History Medical History Relation Name Comments Blindness Mother Glaucoma Neg Hx Macular Degen Neg Hx Relation Name Status Comments Mother Social History Date Tobacco Use Types Packs/Day Years Used Never Smoker Smokeless Tobacco: Never Used Sex Assigned at Date Recorded Choose not to disclose 03/15/2021 10:08 AM CDT Last Filed Vital Signs Reading Time Taken Comments Vital Sign - - Blood Pressure - - Pulse - - Temperature - - Respiratory Rate - - Oxygen Saturation - - Inhaled Oxygen Concentration 57.2 kg (126 lb) 03/19/2021 2:49 PM CDT Weight - - Height - - Body Mass Index Plan of Treatment Health Maintenance Due Date Last Done Comments DTAP/TDAP VACCINES (1 - 1954 Tdap) PHYSICAL (COMPREHENSIVE) 1953 EXAM SHINGLES RECOMBINANT 1986 VACCINE (1 of 2) OSTEOPOROSIS 2001 SCREENING/MONITORING PNEUMONIA (PPSV23) 2001 VACCINE (1 of 1 - PPSV23) INFLUENZA VACCINE 04/07/2021 Results Not on filefrom Last 3 Months Insurance Type Payer Benefit Subscriber ID Effective Phone Address Plan / Dates Group [employer] [id number] 2020-P [id number] [address] Medicaid [facility] MEDICAID [facility] [id number] 2020-P [address] [place] [address] 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
--- NOTE | 2021-07-29 12:44 | Progress Note ---
FARTUN HELM MD 07/29/21 1244: Subjective Subjective/Events-last exam No acute events overnight. Weaned to room air this morning. She denies any chest pain or leg swelling, though does report chronic lower extremity numbness. She also reports chronic abdominal swelling. She reports hesitancy taking anticoagulation due to multiple chemical intolerance. Objective Exam Last Set of Vital Signs Vital Signs Date Time Temp Pulse Resp B/P (MAP) Pulse Ox O2 Delivery O2 Flow Rate FiO2 07/29/21 11:32 36.0 56 20 146/66 (92) 95 Room Air 07/29/21 09:00 1.00 Capillary Refill : Less Than 3 Seconds I&O Intake and Output 07/29/21 00:00 Intake Total 1350 ml Output Total 1150 ml Balance 200 ml Intake Oral 1350 ml Output Urine Total 1150 ml # Voids 1 General: Alert, Oriented X3, Other (Fragile appearing elderly female) HEENT: Atraumatic Neck: Supple Lungs: Clear to Auscultation Heart: Regular Rate, Normal S1, Normal S2 Abdomen: Normal Bowel Sounds Extremities: No Edema Skin: No Rashes Psych/Mental Status: Mental Status NL Results/Procedures Lab Laboratory Tests 07/29/21 05:35: White Blood Count 8.6, Red Blood Count 4.41, Hemoglobin 13.9, Hematocrit 43, Mean Corpuscular Volume 97, Mean Corpuscular Hemoglobin 32, Mean Corpuscular Hemoglobin Concent 33, Red Cell Distribution Width 13.7, Platelet Count 150, Mean Platelet Volume 11.9, Immature Granulocyte % (Auto) 1, Neutrophils (%) (Auto) 71, Lymphocytes (%) (Auto) 13, Monocytes (%) (Auto) 14H, Eosinophils (%) (Auto) 2, Basophils (%) (Auto) 1, Neutrophils # (Auto) 6.0, Lymphocytes # (Auto) 1.1, Monocytes # (Auto) 1.2H, Eosinophils # (Auto) 0.1, Basophils # (Auto) 0.1, Immature Granulocyte # (Auto) 0.1, Sodium Level 138, Potassium Level 3.2L, Chloride Level 98, Carbon Dioxide Level 25, Anion Gap 15H, Blood Urea Nitrogen 43H, Creatinine 1.33H, Estimat Glomerular Filtration Rate 38, BUN/Creatinine Ratio 32, Glucose Level 192H, Calcium Level 8.9, Corrected Calcium 9.3, Total Bilirubin 1.4H, Aspartate Amino Transf (AST/SGOT) 31, Alanine Aminotransferase (ALT/SGPT) 50, Alkaline Phosphatase 86, Total Protein 6.4, Albumin 3.5 Assessment/Plan Assessment/Plan Admission Dx Acute Hypoxic Respiratory Failure (1) Respiratory failure Status: Acute Assessment & Plan: 86F with history of tricuspid and mitral regurgitation, though normal EF, presented with leg pain and oxygen requirement, elevated D- dimer at ~5.1 and BNP >500 with CXR showing bilateral effusion. DDx includes acute on chronic HFpEF more likely than pulmonary embolus. Weaned to RA after diuresis with 40 mg IV BID now with bump in Cr. -Echo pending -Holding lasix given LULI -Strict intake/output, daily weights -Cardiology following, appreciate recommendations -Lower extremity US to evaluate for DVT -Will obtain V/Q in AM given elevated Cr Qualifiers: Qualified Codes: J96.01 - Acute respiratory failure with hypoxia (2) Tricuspid regurgitation Status: Chronic Assessment & Plan: Severe TR on echo 05/2020, repeat pending. (3) Mitral regurgitation Status: Chronic Assessment & Plan: Moderate MR on echo 05/2020, repeat echo pending. (4) Paroxysmal atrial fibrillation Status: Chronic Assessment & Plan: Rate controlled with rates 50-60s on metoprolol, but not on anticoagulation per patient preference despite [id number] 5. -Continue metoprolol 12.5 mg BID (5) Compression fracture of T9 vertebra Status: Chronic Assessment & Plan: In setting of osteoporosis. Age indeterminate on imaging. Patient reports falling at home, but was without pain. (6) Debility Status: Chronic Assessment & Plan: Unable to ambulate 2/2 pain. -PT consulted ROXI JENKINS MD 07/29/21 1507: Supervisory-Addendum Brief Supervisory Addendum I personally have seen and evaluated the patient and agree with documentation by PGY3 Corby Helm MD. I agree with the documented assessment and plan. FRATUN HELM MD Jul 29, 2021 12:44 ROXI JENKINS MD Jul 29, 2021 15:07
--- NOTE | 2021-07-29 13:37 | Diagnostic Imaging Report ---
PROCEDURE: US Venous Lower Ext Hernandez. TECHNIQUE: Multiple real-time grayscale images were obtained over the lower extremities in various projections, bilaterally. Additional duplex Doppler and color Doppler images were also obtained. INDICATION: Elevated D-dimer. There is no evidence of right or left lower extremity DVT. Both lower extremity deep venous system shows normal compressibility with normal response to augmentation and Valsalva. No fluid collection or mass is detected. IMPRESSION: No evidence of right or left lower extremity DVT. Dictated by: Dictated on workstation # [id number]
--- NOTE | 2021-07-29 14:15 | Diagnostic Imaging Report ---
INDICATION: Shortness of breath. COMPARISON: 07/29/2021 chest x-ray. FINDINGS: The perfusion study was performed with 5.34 mCi of technetium 99M MAA given IV. There is good uptake throughout both lungs. There are no segmental or subsegmental defects demonstrated. IMPRESSION: Normal perfusion only lung scan. This is considered low probability for PE. Dictated by: Dictated on workstation # [id number]
[2021-07-29 16:00] VITALS: BP 119/57
--- NOTE | 2021-07-29 17:48 | Cardiology Progress Note ---
Progress Note-Cardiology Events since last exam Date Seen by Provider: Jul 29, 2021 Time Seen by Provider: 17:44 Events since last exam I am seeing her due to atrial fibrillation and heart failure. Her leg cramps have improved. She is concerned about her kidneys and her ability to ambulate. She denies dyspnea at rest. She denies chest pain, palpitations, or syncope. She has chronic, mild ankle edema which is about the same. Certain portions of this document may have been dictated utilizing voice recog nition technology. Inherent to this technology, typographical and grammatical errors may exist. As much as I am diligent to identify and correct these mistakes, some errors may remain in the document. Vitals Last set of Vitals Signs Vital Signs 07/29/21 07/29/21 13:58 16:00 Temp 37.3 Pulse 61 Resp 18 B/P (MAP) 119/57 (77) Pulse Ox 93 O2 Delivery Room Air O2 Flow Rate 1.00 Labs Labs Laboratory Tests 07/29/21 05:35 Exam Vital Signs Vital Signs Date Time Temp Pulse Resp B/P (MAP) Pulse Ox O2 Delivery O2 Flow Rate FiO2 07/29/21 16:00 37.3 61 18 119/57 (77) 93 Room Air 07/29/21 13:58 1.00 Physical Exam General: Alert. No acute distress. Eye: No xanthelasma. HENT: Normocephalic. Neck: Jugular venous pressure does not appear elevated. Respiratory: Lungs are clear to auscultation. Respirations are non-labored. Breath sounds are equal. Symmetrical chest wall expansion. Cardiovascular: Normal rate. Regular rhythm. 3/6 systolic ejection murmur. No gallop. Trace bilateral pretibial edema. Gastrointestinal: Soft. Normal bowel sounds. Skin: Warm. Dry. Neurologic: Alert and oriented to person, place, time. Cranial nerves 3-11 grossly intact. Psychiatric: Cooperative. Appropriate mood & affect. Labs Laboratory Tests Test 07/29/21 05:35 Range/Units White Blood Count 8.6 4.3-11.0 10^3/uL Red Blood Count 4.41 3.80-5.11 10^6/uL Hemoglobin 13.9 11.5-16.0 g/dL Hematocrit 43 35-52 % Mean Corpuscular Volume 97 80-99 fL Mean Corpuscular Hemoglobin 32 25-34 pg Mean Corpuscular Hemoglobin Concent 33 32-36 g/dL Red Cell Distribution Width 13.7 10.0-14.5 % Platelet Count 150 130-400 10^3/uL Mean Platelet Volume 11.9 9.0-12.2 fL Immature Granulocyte % (Auto) 1 % Neutrophils (%) (Auto) 71 42-75 % Lymphocytes (%) (Auto) 13 12-44 % Monocytes (%) (Auto) 14 H 0-12 % Eosinophils (%) (Auto) 2 0-10 % Basophils (%) (Auto) 1 0-10 % Neutrophils # (Auto) 6.0 1.8-7.8 10^3/uL Lymphocytes # (Auto) 1.1 1.0-4.0 10^3/uL Monocytes # (Auto) 1.2 H 0.0-1.0 10^3/uL Eosinophils # (Auto) 0.1 0.0-0.3 10^3/uL Basophils # (Auto) 0.1 0.0-0.1 10^3/uL Immature Granulocyte # (Auto) 0.1 0.0-0.1 10^3/uL Sodium Level 138 135-145 MMOL/L Potassium Level 3.2 L 3.6-5.0 MMOL/L Chloride Level 98 98-107 MMOL/L Carbon Dioxide Level 25 21-32 MMOL/L Anion Gap 15 H 5-14 MMOL/L Blood Urea Nitrogen 43 H 7-18 MG/DL Creatinine 1.33 H 0.60-1.30 MG/DL Estimat Glomerular Filtration Rate 38 BUN/Creatinine Ratio 32 Glucose Level 192 H 70-105 MG/DL Calcium Level 8.9 8.5-10.1 MG/DL Corrected Calcium 9.3 8.5-10.1 MG/DL Total Bilirubin 1.4 H 0.1-1.0 MG/DL Aspartate Amino Transf (AST/SGOT) 31 5-34 U/L Alanine Aminotransferase (ALT/SGPT) 50 0-55 U/L Alkaline Phosphatase 86 40-136 U/L Total Protein 6.4 6.4-8.2 GM/DL Albumin 3.5 3.2-4.5 GM/DL Diagnosis/Problems Diagnosis/Problems (1) Acute on chronic heart failure with preserved ejection fraction (HFpEF) Assessment & Plan: She had evidence of pulmonary congestion on her chest x-ray and changes on her CT of the chest that could be consistent with pulmonary edema. Her follow-up echocardiogram again shows a normal ejection fraction with severe tricuspid regurgitation but only mild mitral regurgitation. Symptomatically, she seems to be slightly improved although she is fixated on her leg pain and kidney function. Her diuretic is now on hold due to worsening renal function. (2) Paroxysmal atrial fibrillation Status: Chronic Assessment & Plan: She was in sinus rhythm on admission. She has refused oral anticoagulation in the past. She has been taking a low-dose of beta-neftali for rate control in the event she has recurrent atrial fibrillation. I explained to her that aspirin will not reduce her risk of stroke from atrial fibrillation and would just put her at increased risk of gastritis. She still does not want to take oral anticoagulation at this time. (3) Tricuspid regurgitation Status: Chronic Assessment & Plan: Her echocardiogram from this admission again shows severe tricuspid regurgitation. This could be causing her peripheral edema. Given her advanced age and marginal renal function, I would not recommend intervention. (4) Mitral regurgitation Status: Chronic Assessment & Plan: Her follow-up echocardiogram from this admission shows improvement of the mitral regurgitation from mild-moderate in 2021 mild at this point in time. HAI HAYWOOD JR, MD Jul 29, 2021 17:48
[2021-07-29 20:00] VITALS: BP 94/54
[2021-07-30] VITALS (7 sets, daily range): BP systolic 100–134; BP diastolic 55–71
[2021-07-30 06:25] LABS: HEMATOCRIT 43 % (35-52); MEAN CORPUSCULAR HEMOGLOBIN 32 pg (25-34); MEAN CORPUSCULAR HGB CONC 33 g/dL (32-36); MEAN CORPUSCULAR VOLUME 98 fL (80-99); MEAN PLATELET VOLUME 11.8 fL (9.0-12.2); PLATELET COUNT 152 10^3/uL (130-400)
[2021-07-30 06:47] LABS: ALBUMIN 3.4 GM/DL (3.2-4.5); BILIRUBIN,TOTAL 1.2 MG/DL (0.1-1.0); CALCIUM 8.9 MG/DL (8.5-10.1); CREATININE SERUM 1.01 MG/DL (0.60-1.30); TOTAL PROTEIN 6.2 GM/DL (6.4-8.2)
[2021-07-30] MEDS: polyethylene glycoL POWDER 17 GM (MIRALAX) PACK PO SCH ×2 (08:41→20:31)
[2021-07-30] MEDS: SENNA W/DOCUSATE (SENOKOT S) TABLET PO SCH ×2 (08:41→20:31)
[2021-07-30] MEDS: ASPIRIN E.C. 81 MG (ECOTRIN) TAB PO SCH (08:42)
[2021-07-30] MEDS: APIXABAN 5 MG (ELIQUIS) TABLET PO SCH ×2 (08:42→20:31)
[2021-07-30] MEDS: KCL 10 MEQ TAB (MICRO K) PO SCH (08:42)
--- NOTE | 2021-07-30 09:24 | Physical Therapy Daily Note ---
PT Daily Note-Current Subjective Patient reluctantly agrees to PT. Patient voices fear that her legs will begin to hurt. PT educated patient on importance of increasing activity and to not anticipate pain. Patient currently denies bilateral LE pain. Mental Status Patient Orientation: Normal For Age Transfers SCALE: Activities may be completed with or without assistive devices. 1-Fodakicjgk-fwslplz completes the activity by him/herself with no assistance from a helper. 5-Set-up or Clean-up Assistance-helper sets up or cleans up; patient completes activity. [place] assists only prior to or following the activity. 4-Supervision or Touching Assistance-helper provides verbal cues and/or touching/steadying and/or contact guard assistance as patient completes activity. Assistance may be provided throughout the activity or intermittently. 3-Partial/Moderate Assistance-helper does LESS THAN HALF the effort. [place] lifts, holds or supports trunk or limbs, but provides less than half the effort. 2-Substantial/Maximal Assistance-helper does MORE THAN HALF the effort. [place] lifts or holds trunk or limbs and provides more than half the effort. 1-Xrqcpkbql-zfbckh does ALL the effort. Patient does none of the effort to complete the activity. Or, the assistance of 2 or more helpers is required for the patient to complete the activity. If activity was not attempted, code reason: 7-Patient Refused. 9-Not Applicable-not attempted and the patient did not perform the activity before the current illness, exacerbation or injury. 10-Not Attempted due to Environmental Limitations-(lack of equipment, weather restraints, etc.). 88-Not Attempted due to Medical Conditions or Safety Concerns. Lying to Sitting/Side of Bed(Q: 4 Sit to Stand (QC): 4 Chair/Njw-uu-Zfnab Xfer(QC): 4 Gait Training Does the Patient Walk?: Yes Distance: 180' Walk 10 feet (QC): 4 Walk 50 ft with 2 Turns(QC): 4 Walk 150 ft (QC): 4 Gait Assistive Device: FWW very slow, functional gait sequence with no deviation Exercises Seated Therapy Exercises: Ankle pumps, Long arc quads, Hip flexion Seated Reps: 12 Assessment Patient requires time to complete all functional tasks. Patient encouraged to be OOB and to increase activity. Patient in recliner with needs met. PT Economics Instructor Goals Economics Instructor Goals PT Longterm Goals Time Frame: Aug 10, 2021 Roll Left & Right (QC): 5 Sit to Lying (QC): 5 Lying-Sitting on Side/Bed(QC): 5 Sit to Stand (QC): 5 Chair/Umd-mo-Dxvab Xfer(QC): 5 Toilet Transfer (QC): 5 Walk 10 feet (QC): 4 Walk 50ft with 2 Turns (QC): 4 Walk 150 ft (QC): 4 PT Plan Treatment/Plan Treatment Plan: Continue Plan of Care Treatment Plan: Bed Mobility, Education, Functional Activity Kale, Functional Strength, Gait, Safety, Therapeutic Exercise, Transfers Treatment Duration: Aug 10, 2021 Frequency: 6 times per week Estimated Hrs Per Day: .25 hour per day Patient and/or Family Agrees t: Yes Time/GCodes Time In: 800 Time Out: 824 Total Billed Treatment Time: 24 Total Billed Treatment 1 visit FA x 2 24 min YENNIFER SHEA PT Jul 30, 2021 09:24
--- NOTE | 2021-07-30 15:10 | Progress Note ---
FARTUN HELM MD 07/30/21 1510: Subjective Subjective/Events-last exam Patient had negative vascular US and low-probability VQ scan yesterday. Echo showed severe TR with normal EF. No acute events overnight. This AM, she reports some burning with urination and concern about her kidneys after receiving medication for VQ scan yesterday. She denies chest, worsening abdominal pain. Objective Exam Last Set of Vital Signs Vital Signs Date Time Temp Pulse Resp B/P (MAP) Pulse Ox O2 Delivery O2 Flow Rate FiO2 07/30/21 13:00 53 07/30/21 11:58 36.6 22 134/71 (92) 96 Room Air 07/30/21 06:34 1.00 Capillary Refill : Less Than 3 Seconds I&O Intake and Output 07/30/21 00:00 Intake Total 1340 ml Output Total 1150 ml Balance 190 ml Intake Oral 1340 ml Output Urine Total 1150 ml # Bowel Movements 1 General: Alert, Oriented X3 HEENT: Atraumatic Neck: Supple Lungs: Clear to Auscultation Heart: Regular Rate, Normal S1, Normal S2, No Murmurs Abdomen: Normal Bowel Sounds, Other (Distended abdomen) Extremities: No Clubbing, No Edema Skin: No Rashes Psych/Mental Status: Mental Status NL Results/Procedures Lab Laboratory Tests 07/30/21 05:55: White Blood Count 8.0, Red Blood Count 4.37, Hemoglobin 14.0, Hematocrit 43, Mean Corpuscular Volume 98, Mean Corpuscular Hemoglobin 32, Mean Corpuscular Hemoglobin Concent 33, Red Cell Distribution Width 13.6, Platelet Count 152, Mean Platelet Volume 11.8, Sodium Level 138, Potassium Level 4.0, Chloride Level 102, Carbon Dioxide Level 23, Anion Gap 13, Blood Urea Nitrogen 38H, Creatinine 1.01, Estimat Glomerular Filtration Rate 52, BUN/Creatinine Ratio 38, Glucose Level 105, Calcium Level 8.9, Corrected Calcium 9.4, Total Bilirubin 1.2H, Aspartate Amino Transf (AST/SGOT) 23, Alanine Aminotransferase (ALT/SGPT) 37, Alkaline Phosphatase 77, Total Protein 6.2L, Albumin 3.4 Assessment/Plan Assessment/Plan Admission Dx HFpEF Exacerbation Admission Status: Inpatient Order (span 2 midnights) (1) Respiratory failure Status: Acute Assessment & Plan: 86F with history of tricuspid and mitral regurgitation, though normal EF, presented with leg pain and oxygen requirement, elevated D- dimer at ~5.1 and BNP >500 with CXR showing bilateral effusion. V/Q scan low- probability for PE. Echo with persistent severe TR, normal EF and indeterminate LV diastolic function. Given patient improved with IV diuresis, it seems her hypoxia was related to HFpEF exacerbation. -Strict intake/output -Will use PRN PO lasix given patient's reluctance to start new medications -Cardiology following, appreciate recommendations Qualifiers: Qualified Codes: J96.01 - Acute respiratory failure with hypoxia (2) Tricuspid regurgitation Status: Chronic Assessment & Plan: Severe TR on echo, cardiology following with no plan for intervention given age and renal function. (3) Mitral regurgitation Status: Chronic Assessment & Plan: Moderate MR on echo 05/2020, repeat echo with mild MR. (4) Paroxysmal atrial fibrillation Status: Chronic Assessment & Plan: Rate controlled with rates 50-60s on metoprolol, but not on anticoagulation per patient preference despite [id number] 5. -Continue metoprolol 12.5 mg BID (5) Compression fracture of T9 vertebra Status: Chronic Assessment & Plan: In setting of osteoporosis. Age indeterminate on imaging. Patient reports falling at home, but was without pain. (6) Debility Status: Chronic Assessment & Plan: Pain limiting ambulation, but patient walking this AM with PT. -PT consulted ROXI JENKINS MD 07/30/21 1549: Supervisory-Addendum Brief Supervisory Addendum I personally have seen and evaluated the patient and agree with assessment and plan as documented by PGY3 Corby Helm MD. FARTUN HELM MD Jul 30, 2021 15:10 ROXI JENKINS MD Jul 30, 2021 15:49
--- NOTE | 2021-07-30 17:51 | Cardiology Progress Note ---
Progress Note-Cardiology Events since last exam Date Seen by Provider: Jul 30, 2021 Time Seen by Provider: 17:46 Events since last exam I am following her due to atrial fibrillation and heart failure. She is still complaining about her kidneys and calf pain. She denies chest discomfort, dyspnea at rest, palpitations, or syncope. She has mild bilateral ankle edema which is chronic and intermittent. Certain portions of this document may have been dictated utilizing voice recognition technology. Inherent to this technology, typographical and grammatical errors may exist. As much as I am diligent to identify and correct these mistakes, some errors may remain in the document. Vitals Last set of Vitals Signs Vital Signs 07/30/21 07/30/21 06:34 16:15 Temp 36.4 Pulse 54 Resp 18 B/P (MAP) 100/62 (75) Pulse Ox 94 O2 Delivery Room Air O2 Flow Rate 1.00 Labs Labs Laboratory Tests 07/30/21 05:55 Exam Vital Signs Vital Signs Date Time Temp Pulse Resp B/P (MAP) Pulse Ox O2 Delivery O2 Flow Rate FiO2 07/30/21 16:15 36.4 54 18 100/62 (75) 94 Room Air 07/30/21 06:34 1.00 Physical Exam General: Alert. No acute distress. Eye: No xanthelasma. HENT: Normocephalic. Neck: Jugular venous pressure does not appear elevated. Respiratory: Lungs are clear to auscultation. Respirations are non-labored. Breath sounds are equal. Symmetrical chest wall expansion. Cardiovascular: Normal rate. Regular rhythm. 3/6 systolic ejection murmur. No gallop. Trace bilateral pretibial edema. Gastrointestinal: Soft. Normal bowel sounds. Skin: Warm. Dry. Neurologic: Alert and oriented to person, place, time. Cranial nerves 3-11 g rossly intact. Psychiatric: Cooperative. Appropriate mood & affect. Labs Laboratory Tests Test 07/30/21 05:55 Range/Units White Blood Count 8.0 4.3-11.0 10^3/uL Red Blood Count 4.37 3.80-5.11 10^6/uL Hemoglobin 14.0 11.5-16.0 g/dL Hematocrit 43 35-52 % Mean Corpuscular Volume 98 80-99 fL Mean Corpuscular Hemoglobin 32 25-34 pg Mean Corpuscular Hemoglobin Concent 33 32-36 g/dL Red Cell Distribution Width 13.6 10.0-14.5 % Platelet Count 152 130-400 10^3/uL Mean Platelet Volume 11.8 9.0-12.2 fL Sodium Level 138 135-145 MMOL/L Potassium Level 4.0 3.6-5.0 MMOL/L Chloride Level 102 98-107 MMOL/L Carbon Dioxide Level 23 21-32 MMOL/L Anion Gap 13 5-14 MMOL/L Blood Urea Nitrogen 38 H 7-18 MG/DL Creatinine 1.01 0.60-1.30 MG/DL Estimat Glomerular Filtration Rate 52 BUN/Creatinine Ratio 38 Glucose Level 105 70-105 MG/DL Calcium Level 8.9 8.5-10.1 MG/DL Corrected Calcium 9.4 8.5-10.1 MG/DL Total Bilirubin 1.2 H 0.1-1.0 MG/DL Aspartate Amino Transf (AST/SGOT) 23 5-34 U/L Alanine Aminotransferase (ALT/SGPT) 37 0-55 U/L Alkaline Phosphatase 77 40-136 U/L Total Protein 6.2 L 6.4-8.2 GM/DL Albumin 3.4 3.2-4.5 GM/DL Diagnosis/Problems Diagnosis/Problems (1) Acute on chronic heart failure with preserved ejection fraction (HFpEF) Assessment & Plan: She had evidence of pulmonary congestion on her chest x-ray and changes on her CT of the chest that could be consistent with pulmonary edema. Her follow-up echocardiogram again shows a normal ejection fraction with severe tricuspid regurgitation but only mild mitral regurgitation. Symptomatically, she seems to be slightly improved although she is fixated on her leg pain and kidney function. Her diuretic is now on hold due to worsening renal function. Fortunately, the creatinine level is improving. I would hold off on giving her any further diuretic. I have ordered a 2 L/day fluid restriction. She admits to eating too much sodium at home. She plans to try and stop eating as much snack food that contain sodium when she is discharged. I have ordered compression stockings for the peripheral edema. This may also help with her leg cramps. (2) Paroxysmal atrial fibrillation Status: Chronic Assessment & Plan: She was in sinus rhythm on admission. She continues to refuse oral anticoagulation. She has been taking a low-dose of beta-neftali for rate control in the event she has recurrent atrial fibrillation. I explained to her that aspirin will not reduce her risk of stroke from atrial fibrillation and would just put her at increased risk of gastritis. She still does not want to take oral anticoagulation at this time. (3) Tricuspid regurgitation Status: Chronic Assessment & Plan: Her echocardiogram from this admission again shows severe tricuspid regurgitation. This could be causing her peripheral edema. Given her advanced age and marginal renal function, I would not recommend intervention. (4) Mitral regurgitation Status: Chronic Assessment & Plan: Her follow-up echocardiogram from this admission shows improvement of the mitral regurgitation from mild-moderate in 2021 mild at this point in time. HAI HAYWOOD JR, MD Jul 30, 2021 17:50
[2021-07-30 19:46] LABS: BILIRUBIN,URINE NEGATIVE (NEGATIVE); CLARITY,URINE SL CLOUDY; COLOR,URINE YELLOW; GLUCOSE, URINE (UA) NEGATIVE (NEGATIVE); KETONES,URINE NEGATIVE (NEGATIVE); LEUKOCYTE ESTERASE ,URINE 1+ (NEGATIVE); NITRITE,URINE NEGATIVE (NEGATIVE); PH,URINE 7.5 (5-9); PROTEIN,URINE TRACE (NEGATIVE)
[2021-07-30 19:59] LABS: TRIPLE PHOSPHATE CRYSTAL,UR LARGE /LPF
[2021-07-30 20:00] LABS: BACTERIA,URINE LARGE /HPF
[2021-07-30 20:01] LABS: RBC,URINE 0-2 /HPF; SQUAMOUS EPITHELIAL CELL,UR RARE /HPF; WBC,URINE 0-2 /HPF
[2021-07-31 03:23] VITALS: BP 130/59
[2021-07-31 06:07] LABS: HEMATOCRIT 42 % (35-52); HEMOGLOBIN 13.8 g/dL (11.5-16.0); MEAN CORPUSCULAR HEMOGLOBIN 32 pg (25-34); MEAN CORPUSCULAR HGB CONC 33 g/dL (32-36); MEAN CORPUSCULAR VOLUME 99 fL (80-99); MEAN PLATELET VOLUME 11.7 fL (9.0-12.2); PLATELET COUNT 156 10^3/uL (130-400); WHITE BLOOD COUNT 8.2 10^3/uL (4.3-11.0)
[2021-07-31 06:22] LABS: ALBUMIN 3.4 GM/DL (3.2-4.5); POTASSIUM 4.1 MMOL/L (3.6-5.0)
[2021-07-31 06:23] LABS: CALCIUM 8.7 MG/DL (8.5-10.1)
[2021-07-31 06:28] LABS: CREATININE SERUM 1.06 MG/DL (0.60-1.30)
[2021-07-31 07:25] VITALS: BP 122/56
[2021-07-31] MEDS: APIXABAN 5 MG (ELIQUIS) TABLET PO SCH (09:00)
[2021-07-31] MEDS: polyethylene glycoL POWDER 17 GM (MIRALAX) PACK PO SCH (09:00)
[2021-07-31] MEDS: SENNA W/DOCUSATE (SENOKOT S) TABLET PO SCH (09:00)
[2021-07-31] MEDS: ASPIRIN E.C. 81 MG (ECOTRIN) TAB PO SCH (09:19)
--- NOTE | 2021-07-31 09:50 | Cardiology Progress Note ---
Progress Note-Cardiology Events since last exam Date Seen by Provider: Jul 31, 2021 Time Seen by Provider: 09:48 Events since last exam I am following her due to heart failure. She was up walking with physical th erapy this morning. She did not have any leg pain while walking. She is concerned her leg cramps will come back after she took the walk. I ordered compression stockings for the patient but she refused these last evening. She did have some shortness of breath while walking with physical therapy. She denies chest pain, palpitations, or syncope. Her mild ankle edema is about status quo. Certain portions of this document may have been dictated utilizing voice recognition technology. Inherent to this technology, typographical and grammatical errors may exist. As much as I am diligent to identify and correct these mistakes, some errors may remain in the document. Vitals Last set of Vitals Signs Vital Signs 07/30/21 07/31/21 06:34 12:20 Temp 36.5 Pulse 67 Resp 20 B/P (MAP) 141/63 (89) Pulse Ox 97 O2 Delivery Room Air O2 Flow Rate 1.00 Labs Labs Laboratory Tests 07/31/21 05:43 07/31/21 06:04 Exam Vital Signs Vital Signs Date Time Temp Pulse Resp B/P (MAP) Pulse Ox O2 Delivery O2 Flow Rate FiO2 07/31/21 13:38 07/31/21 12:20 36.5 67 20 97 Room Air 07/30/21 06:34 1.00 Physical Exam General: Alert. No acute distress. Very soft spoken. Eye: No xanthelasma. HENT: Normocephalic. Neck: Jugular venous pressure does not appear elevated. Respiratory: Lungs are clear to auscultation. Respirations are non-labored. Breath sounds are equal. Symmetrical chest wall expansion. Cardiovascular: Normal rate. Regular rhythm. 3/6 systolic ejection murmur. No gallop. Trace bilateral pretibial edema. Gastrointestinal: Soft. Normal bowel sounds. Skin: Warm. Dry. Neurologic: Alert and oriented to person, place, time. Cranial nerves 3-11 grossly intact. Psychiatric: Cooperative. Appropriate mood & affect. Labs Laboratory Tests Test 07/30/21 19:40 07/31/21 05:43 07/31/21 06:04 Range/Units Urine Color YELLOW Urine Clarity SL CLOUDY Urine pH 7.5 5-9 Urine Specific [place] 1.010 L 1.016-1.022 Urine Protein TRACE H NEGATIVE Urine Glucose (UA) NEGATIVE NEGATIVE Urine Ketones NEGATIVE NEGATIVE Urine Nitrite NEGATIVE NEGATIVE Urine Bilirubin NEGATIVE NEGATIVE Urine Urobilinogen 0.2 < = 1.0 MG/DL Urine Leukocyte Esterase 1+ H NEGATIVE Urine RBC (Auto) 1+ H NEGATIVE Urine RBC 0-2 /HPF Urine WBC 0-2 /HPF Urine Squamous Epithelial Cells RARE /HPF Urine Crystals PRESENT H /LPF Urine Triple Phosphate Crystals LARGE H /LPF Urine Bacteria LARGE H /HPF Urine Casts NONE /LPF Urine Mucus NEGATIVE /LPF Urine Culture Indicated YES White Blood Count 8.2 4.3-11.0 10^3/uL Red Blood Count 4.28 3.80-5.11 10^6/uL Hemoglobin 13.8 11.5-16.0 g/dL Hematocrit 42 35-52 % Mean Corpuscular Volume 99 80-99 fL Mean Corpuscular Hemoglobin 32 25-34 pg Mean Corpuscular Hemoglobin Concent 33 32-36 g/dL Red Cell Distribution Width 13.7 10.0-14.5 % Platelet Count 156 130-400 10^3/uL Mean Platelet Volume 11.7 9.0-12.2 fL Sodium Level 139 135-145 MMOL/L Potassium Level 4.1 3.6-5.0 MMOL/L Chloride Level 104 98-107 MMOL/L Carbon Dioxide Level 25 21-32 MMOL/L Anion Gap 10 5-14 MMOL/L Blood Urea Nitrogen 39 H 7-18 MG/DL Creatinine 1.06 0.60-1.30 MG/DL Estimat Glomerular Filtration Rate 49 BUN/Creatinine Ratio 37 Glucose Level 112 H 70-105 MG/DL Calcium Level 8.7 8.5-10.1 MG/DL Corrected Calcium 9.2 8.5-10.1 MG/DL Total Bilirubin 1.0 0.1-1.0 MG/DL Aspartate Amino Transf (AST/SGOT) 21 5-34 U/L Alanine Aminotransferase (ALT/SGPT) 29 0-55 U/L Alkaline Phosphatase 81 40-136 U/L Total Protein 6.0 L 6.4-8.2 GM/DL Albumin 3.4 3.2-4.5 GM/DL Diagnosis/Problems Diagnosis/Problems (1) Acute on chronic heart failure with preserved ejection fraction (HFpEF) Assessment & Plan: She had evidence of pulmonary congestion on her chest x-ray and changes on her CT of the chest that could be consistent with pulmonary edema. Her follow-up echocardiogram again showed a normal ejection fraction with severe tricuspid regurgitation but only mild mitral regurgitation. Sympto matically, she seems to be slightly improved although she is fixated on her leg pain and kidney function. Her diuretic is now on hold due to worsening renal function. Fortunately, the creatinine level is improving. I would hold off on giving her any further diuretic. I have ordered a 2 L/day fluid restriction. She admits to eating too much sodium at home. She plans to try and stop eating as much snack food that contain sodium when she is discharged. I have ordered compression stockings for the peripheral edema. This may also help with her leg cramps. Unfortunately, the patient refused compression stockings. She states she would like to think this over. From a cardiac standpoint, she is probably euvolemic. She can be discharged back to the assisted living once her other issues have improved. Cardiology will sign off at this time. I have asked the community coordinator to schedule her for a follow-up visit in our office in approximately 1 month. Please call if you have other questions or concerns (2) Paroxysmal atrial fibrillation Status: Chronic Assessment & Plan: She was in sinus rhythm on admission. She continues to refuse oral anticoagulation. She has been taking a low-dose of beta-neftali for rate control in the event she has recurrent atrial fibrillation. I explained to her that aspirin will not reduce her risk of stroke from atrial fibrillation and would just put her at increased risk of gastritis. She still does not want to take oral anticoagulation at this time. (3) Tricuspid regurgitation Status: Chronic Assessment & Plan: Her echocardiogram from this admission again shows severe tricuspid regurgitation. This could be causing her peripheral edema. Given her advanced age and marginal renal function, I would not recommend intervention. (4) Mitral regurgitation Status: Chronic Assessment & Plan: Her follow-up echocardiogram from this admission shows impro vement of the mitral regurgitation from mild-moderate in 2021 mild at this point in time. HAI HAYWOOD JR, MD Jul 31, 2021 09:50
--- NOTE | 2021-07-31 10:54 | Physical Therapy Daily Note ---
PT Daily Note-Current Subjective Pt in recliner upon arrival and requires encouragement to participate in PT. Pt has no reports of pain but says if her legs cramp up she will not be able to walk. Mental Status Patient Orientation: Normal For Age Transfers SCALE: Activities may be completed with or without assistive devices. 2-Riwtcprqpw-habfytp completes the activity by him/herself with no assistance from a helper. 5-Set-up or Clean-up Assistance-helper sets up or cleans up; patient completes activity. [place] assists only prior to or following the activity. 4-Supervision or Touching Assistance-helper provides verbal cues and/or touching/steadying and/or contact guard assistance as patient completes activity. Assistance may be provided throughout the activity or intermittently. 3-Partial/Moderate Assistance-helper does LESS THAN HALF the effort. [place] lifts, holds or supports trunk or limbs, but provides less than half the effort. 2-Substantial/Maximal Assistance-helper does MORE THAN HALF the effort. [place] lifts or holds trunk or limbs and provides more than half the effort. 1-Ybphgusxf-gysjpp does ALL the effort. Patient does none of the effort to complete the activity. Or, the assistance of 2 or more helpers is required for the patient to complete the activity. If activity was not attempted, code reason: 7-Patient Refused. 9-Not Applicable-not attempted and the patient did not perform the activity before the current illness, exacerbation or injury. 10-Not Attempted due to Environmental Limitations-(lack of equipment, weather restraints, etc.). 88-Not Attempted due to Medical Conditions or Safety Concerns. Sit to Stand (QC): 4 Gait Training Does the Patient Walk?: Yes Distance: 185' Walk 10 feet (QC): 4 Walk 50 ft with 2 Turns(QC): 4 Walk 150 ft (QC): 4 Gait Persons Needed: 1 Gait Assistive Device: FWW Pt amb very slowly w/ shortened step and stride length Treatments Pt in recliner upon arrival and needs encouragement to participate in PT but agrees. Pt performs sit to stand w/ Lakshmi/CGA and then amb into [place] 185' and then amb back to room and TFs back to recliner after PT informs pt it would be good to sit up and be OOB. Assessment Current Status: Good Progress Pt requires skilled verbal cues about hand and foot placement during TFs and to amb w/ longer strides during amb. Pt does not have any leg cramps throughout treatment. Pt has call light nearby and all needs met as PT departs. PT Fdc Goals Shell Assembler Goals PT Shell Assembler Goals Time Frame: Aug 10, 2021 Roll Left & Right (QC): 5 Sit to Lying (QC): 5 Lying-Sitting on Side/Bed(QC): 5 Sit to Stand (QC): 5 Chair/Wpq-lc-Wcqbj Xfer(QC): 5 Toilet Transfer (QC): 5 Walk 10 feet (QC): 4 Walk 50ft with 2 Turns (QC): 4 Walk 150 ft (QC): 4 PT Plan Problem List Problem List: Activity Tolerance, Functional Strength, Safety Treatment/Plan Treatment Plan: Continue Plan of Care Treatment Plan: Bed Mobility, Education, Functional Activity Kale, Functional Strength, Gait, Safety, Therapeutic Exercise, Transfers Treatment Duration: Aug 10, 2021 Frequency: 6 times per week Estimated Hrs Per Day: .25 hour per day Patient and/or Family Agrees t: Yes Safety Risks/Education Patient Education: Gait Training, Transfer Techniques Teaching Recipient: Patient Teaching Methods: Discussion Response to Teaching: Return Demonstration Time/GCodes Time In: 912 Time Out: 937 Total Billed Treatment Time: 25 Total Billed Treatment 1 visit, GT (20min), FA (5min) TONNY JONES AUTOMATION MACHINE OPERATOR Jul 31, 2021 10:54
[2021-07-31 12:20] VITALS: BP 141/63
[2021-07-31] MEDS ORDERED: FURO-125 PO (12:20)
[2021-07-31] MEDS ORDERED: CEFD300C3 PO (12:20)
--- NOTE | 2021-07-31 12:47 | Discharge Summary ---
FARTUN PABON MD 07/31/21 1235: Discharge Summary Reconcile Patient Problems Problems Reviewed?: Yes Instructions for Patient Via [employer], Assessment/Instructions Patient to receive home health PT/OT and follow up with PCP in the next two weeks. Physician to follow Patient: Lexie Valladares Discharge Diet for Home: Cardiac Diet (2 g sodium restriction, ideally 2 L fluid restriction as well), Low Sodium Diet Hospital Course Date of Admission: Jul 27, 2021 at 15:55 Admission Diagnosis : Acute hypoxic respiratory failure 2/2 heart failure with preserved ejection fraction Family Physician/Provider: Lexie Baker Date of Discharge: 07/31/21 Discharge Diagnosis: Acute on Chronic Heart Failure with Preserved Ejection Fraction Urinary Tract Infection T9 Compression Fracture Mitral regurgitation Tricuspid regurgitation Paroxysmal atrial fibrillation Debility Hospital Course: 86 year old female with HTN, severe TR, moderate MR, pAF not on anticoagulation per patient preference, peripheral neuropathy presented from her facility 07/27 for lower leg pain with oxygen saturation found to be 84% in the ED, placed on nasal cannula. She had elevated BNP as well as elevated D-dimer. Chest CT showed moderate bilateral effusions and age indeterminate T9-T10 compression fractures (patient asymptomatic without recent falls). DVT and V/Q scan obtained negative for DVT and low probability for PE. Cardiology was consulted and she was diuresed with 40 mg IV lasix BID and was subsequently weaned to room air with 20 mg PO lasix PRN at discharge. Echo obtained showed normal systolic function, indeterminate diastolic function, and persistent but stable TR without intervention recommended by cardiology. Hospital course complicated by a UTI fo und on day of discharge, for which she was sent with 5 days of cefdinir, as well as debility, but patient was able to ambulate with PT prior to discharge. She was discharged back to [facility] with PT and OT. Labs and Pending Lab Test: Laboratory Tests 07/30/21 19:40: Urine Color YELLOW, Urine Clarity SL CLOUDY, Urine pH 7.5, Urine Specific [place] 1.010L, Urine Protein TRACEH, Urine Glucose (UA) NEGATIVE, Urine Ketones NEGATIVE, Urine Nitrite NEGATIVE, Urine Bilirubin NEGATIVE, Urine Urobilinogen 0.2, Urine Leukocyte Esterase 1+H, Urine RBC (Auto) 1+H, Urine RBC 0-2, Urine WBC 0-2, Urine Squamous Epithelial Cells RARE, Urine Crystals PRESENTH, Urine Triple Phosphate Crystals LARGEH, Urine Bacteria LARGEH, Urine Casts NONE, Urine Mucus NEGATIVE, Urine Culture Indicated YES 07/31/21 05:43: White Blood Count 8.2, Red Blood Count 4.28, Hemoglobin 13.8, Hematocrit 42, Mean Corpuscular Volume 99, Mean Corpuscular Hemoglobin 32, Mean Corpuscular Hemoglobin Concent 33, Red Cell Distribution Width 13.7, Platelet Count 156, Mean Platelet Volume 11.7 07/31/21 06:04: Sodium Level 139, Potassium Level 4.1, Chloride Level 104, Carbon Dioxide Level 25, Anion Gap 10, Blood Urea Nitrogen 39H, Creatinine 1.06, Estimat Glomerular Filtration Rate 49, BUN/Creatinine Ratio 37, Glucose Level 112H, Calcium Level 8.7, Corrected Calcium 9.2, Total Bilirubin 1.0, Aspartate Amino Transf (AST/SGOT) 21, Alanine Aminotransferase (ALT/SGPT) 29, Alkaline Phosphatase 81, Total Protein 6.0L, Albumin 3.4 Microbiology 07/30/21 Urine Culture - Preliminary, Resulted Gram Negative [facility] [employer] See Comments Home Meds Active Lasix (Furosemide) 20 Mg Tablet 20 Mg PO DAILY PRN PRN 30 Days Cefdinir 300 Mg Capsule 300 Mg PO BID 5 Days Reported Cyanocobalamin Injection (Cyanocobalamin) 1,000 Mcg/Ml Inj 1 Ml INJ MONTHLY Metoprolol Succinate 25 Mg Tab.er.24h 12.5-25 Mg PO 0800 TAKES -1 (25MG) TABLET Consulations Cardiology Patient Allergies: Coded Allergies: Iodinated Contrast Media (Verified Allergy, Unknown, 04/16/20) Home Health Need/Face to Face Date of Face to Face: Jul 31, 2021 Clinical Findings: Generalized weakness and fatigue, Instability, Pain with ambulation I have seen Pt [id number]: Yes Discharged To: Other (Assited Living Facility) Diagnosis/Conditions: Heart failure with preserved ejection fraction Urinary tract infection Mitral regurgitation Tricuspid regurgitation Paroxysmal Atrial Fibrillation T9 Compression Fracture Patient is Homebound due to: [place] fall risk due to instabilty, Muscle weakness, Pain w/ambulation Homebound Status Due to the above stated illness, injury or surgical procedure (medical condition or diagnosis) and associated clinical findings, the patient is homebound because of his/her inability to leave home except with aid of a supportive device and/or person AND leaving the home requires a considerable and taxing effort or is medically contraindicated. Pt req the following assistanc: Aid of another person, Walker Home Health Nursing Orders Home Health Services Order: Cook Chief-Evaluate & Treat, Physical Therapy-Evaluate & Treat Home Health Infusion Therapy Line Start Date: Jul 27, 2021 Certify Stmt I certify that this patient is under my care and that I, a nurse practitioner or a physician; a assistant director working with me, had a face to face encounter that - meets the physician face to face encounter requirements with this patient as dated. Discharge Physical Exam General: Alert, Oriented X3 HEENT: Atraumatic Lungs: Clear to Auscultation, Normal Air Movement Heart: Regular Rate, Normal S1, Normal S2, No Murmurs Abdomen: Normal Bowel Sounds Extremities: Other (1+ peripheral edema) Skin: No Rashes Psych/Mental Status: Mental Status NL ROXI JENKINS MD 07/31/21 1259: Supervisory-Addendum Brief Supervisory Addendum I personally have seen and evaluated the patient. I agree with the documented assessment and plan by PGY3 Corby Pabon MD. FARTUN PABON MD Jul 31, 2021 12:35 ROXI JENKINS MD Jul 31, 2021 12:59
== END 2021-07-31 13:30 | disposition home or self-care (01) | DRG 291 ==
LOC: EDUNIT# 14:52 → ER 14:53 → CSD 15:55 → 4TH 07-28 11:44
PROVIDERS: ADMIT Internal Medicine; ATTEND Family Medicine
DX: I11.0 Hypertensive heart disease with heart failure (principal); I50.33 Acute on chronic diastolic (congestive) heart failure; J96.01 Acute respiratory failure with hypoxia; M80.88XA Other osteoporosis with current pathological fracture, vertebra(e), initial encounter for fracture; J90 Pleural effusion, not elsewhere classified; N39.0 Urinary tract infection, site not specified; I48.0 Paroxysmal atrial fibrillation; I08.1 Rheumatic disorders of both mitral and tricuspid valves; F41.9 Anxiety disorder, unspecified; G62.9 Polyneuropathy, unspecified; H54.7 Unspecified visual loss; B96.20 Unspecified Escherichia coli [E. coli] as the cause of diseases classified elsewhere; B96.4 Proteus (mirabilis) (morganii) as the cause of diseases classified elsewhere; Z91.041 Radiographic dye allergy status; Z91.14 Patient's other noncompliance with medication regimen; Z79.82 Long term (current) use of aspirin
CPT/HCPCS: 36415; 71045; 71046; 71250; 80053; 81000; 83735; 83880; 84484; 85025; 85027; 85379; 85610; 85730; 87077; 87088; 87186; 93005; 93041; 93306; 93970; 94760; 96374